=== PATIENT | male | born 1980 | race Hispanic/Latino ===

== ENCOUNTER 2017-11-15 15:20 | Emergency (ER) | payer OTHER ==
[2017-11-15] MEDS ORDERED: IBUPROFEN 600 MG TABLET ONE (16:55)
== END 2017-11-15 17:02 | disposition home or self-care (01) ==
LOC: EDH 15:20
DX: M77.12 Lateral epicondylitis, left elbow (principal); I25.10 Atherosclerotic heart disease of native coronary artery without angina pectoris; K21.9 Gastro-esophageal reflux disease without esophagitis; I11.0 Hypertensive heart disease with heart failure; I50.9 Heart failure, unspecified; Z87.891 Personal history of nicotine dependence
CPT/HCPCS: 73080; 73130

== ENCOUNTER → 2017-11-20 | Outpatient (CLI) | payer OTHER | END | disposition home or self-care (01) | LOC: RAH 10:00 → EEVIPCON 12:52 → RAH 12:52 | PROVIDERS: ATTEND Internal Medicine | DX: M79.602 Pain in left arm (principal) | CPT/HCPCS: 93971 ==